=== PATIENT | male | born 1990 | race Two or more races ===

== ENCOUNTER 2019-12-05 09:43 | Outpatient (CLI) | payer OTHER ==
[~2019-12-05] VITALS: Ht 182.9 cm; Wt 79.4 kg
== END 2019-12-05 10:20 | disposition home or self-care (01) ==
LOC: OFIC 805 09:43
PROVIDERS: ATTEND Otolaryngology
DX: J30.89 Other allergic rhinitis (principal); J34.89 Other specified disorders of nose and nasal sinuses

== ENCOUNTER → 2020-02-05 | Outpatient (CLI) | payer OTHER ==
[~2020-02-05] VITALS: Ht 182.9 cm; Wt 79.4 kg
== END | disposition home or self-care (01) ==
LOC: OFIC 805 01-09 09:30
PROVIDERS: ATTEND Otolaryngology
DX: J34.89 Other specified disorders of nose and nasal sinuses (principal); J30.89 Other allergic rhinitis